=== PATIENT | female | born 1955 | race Two or more races ===

== ENCOUNTER 2021-12-12 09:13 | Outpatient (CLI) | payer OTHER | END 2021-12-12 09:15 | disposition home or self-care (01) | LOC: NUCLEAR 09:13 | PROVIDERS: ATTEND Specialist | DX: I11.9 Hypertensive heart disease without heart failure (principal); E03.8 Other specified hypothyroidism ==

== ENCOUNTER 2022-05-12 09:22 | Outpatient (CLI) | payer OTHER | END 2022-05-12 09:25 | disposition home or self-care (01) | LOC: TOM 09:22 | PROVIDERS: ATTEND Specialist | DX: I11.9 Hypertensive heart disease without heart failure (principal) ==

== ENCOUNTER 2024-04-21 11:02 | Outpatient (CLI) | payer OTHER | END 2024-04-21 11:06 | disposition home or self-care (01) | LOC: NUCLEAR 11:02 | PROVIDERS: ATTEND Specialist | DX: I87.2 Venous insufficiency (chronic) (peripheral) (principal) ==